=== PATIENT | female | born 1970 | race Asian ===

== ENCOUNTER 2022-12-08 10:16 | Day surgery (SDC) | payer OTHER, SELFPAY ==
--- NOTE | 2022-12-08 | PATH_ITS ---
[facility] Accession Number: [id number] No. of containers..01 Tissue . 01 Material submitted: . rectum - RECTAL POLYP X2 . 01 Diagnosis: Rectal Polyps: Hyperplastic polyp x2. MRV 12/15/2022 1906 Local . 01 Electronically signed: . Wilbert Christian MD, PhD, Pathologist NPI- [id number] . 01 Gross description: . RECTAL POLYP X2: Received in formalin are 2 fragment(s) of milian, soft tissue measuring 0.4 x 0.4 x 0.2 cm to 0.7 x 0.4 x 0.4 cm submitted entirely in 1 cassette(s) /[facility] 12/11/2022 2014 Local . 01 Pathologist provided ICD-10: K62.1 . 01 CPT . 937411 Specimen Comment: A courtesy copy of this report has been sent to [phone] Performed at: 01 [facility] [address] [place] [address], [place], [place] [id number] MD Michael Harrington MD Phone: [phone]
[2022-12-08 10:45] VITALS: BMI 24.9
[2022-12-08 10:59] VITALS: BP 100/66; PULSE 60; RESP 16; TEMP 36.8; O2SAT 98
[2022-12-08] MEDS: LACTATED RINGERS 1,000 ML 200 ML IV (11:03)
--- NOTE | 2022-12-08 12:01 | P.HP_ITS ---
History of Present Illness History of Present Illness Date Patient Seen: 12/08/22 Time Patient Seen: 12:01 Chief complaint: Screening Colonoscopy Narrative: 52-year-old woman here for screening colonoscopy. No prior colonoscopy. No first-degree family members with a history of colon cancer. No abdominal complaints including abdominal pain unintentional weight loss nausea vomiting blood per rectum. [facility] Medical History Arthritis Social History household members: spouse Smoking Status: Current every day smoker alcohol intake: current Meds Home Medications and Allergies Home Medications Medication Instructions Recorded Confirmed Type sodium,potassium,mag sulfates 17.5 See Rx Instructions PO .COMPLEX 10/22/22 12/08/22 Rx gram-3.13 gram-1.6 gram oral soln #354 mL (Suprep Bowel Prep Kit) Allergies Allergy/AdvReac Type Severity Reaction Status Date / Time No Known Drug Allergies Allergy Verified 12/08/22 10:44 Exam Vital Signs (past 8 hours): - 12/08/22 10:45 12/08/22 10:59 Temperature 98.3 F Pulse Rate 60 Respiratory Rate 16 Blood Pressure 100/66 Pulse Oximetry 98 Oxygen Delivery Method Room Air Room Air Oxygen Delivery Method Room Air Narrative Exam Narrative: General adult woman alert oriented no acute distress Chest nonlabored respiration Extremities warm well perfused Assessment & Plan Assessment & Plan narrative: The patient requires colorectal screening and colonoscopy is recommended. Technical details were discussed. Risks, benefits, alternatives explained. Risks including but not limited to myocardial infarction, aspiration, bleeding, pain, missed lesion, incomplete examination, need for further radiographic studies, colonic perforation, and need for major abdominal surgery were discussed. All questions were answered to their satisfaction, and they are in agreement with this plan.
[2022-12-08 12:35] VITALS: BP 82/54; PULSE 69; RESP 16; TEMP 36.7; O2SAT 96
--- NOTE | 2022-12-08 12:39 | PM.OP.COLON ---
Operative Date/Time/Diagnoses Date of procedure: 12/08/22 Time of procedure: 12:39 Pre-op diagnosis: Colorectal screening Post-op diagnosis: other (Colorectal polyps x2) Procedure & Clinicians Study performed: Colonoscopy and polypectomy Same procedure as scheduled: Yes Indications: Colorectal screening Surgeon: Evaristo Molina Procedure Notes Procedure in detail: The history and physical was performed/updated and the patient is ASA class is 2. The procedure was discussed in detail with the patient. Potential risks complications including infection, bleeding, missed diagnosis, perforation, need for surgery, and were explained. Their questions were answered and informed consent was obtained. Patient was brought to the procedure room and placed standard monitoring equipment. The patient's vital signs were monitored continuously throughout the entire procedure. Prior to starting time-out was performed. The patient was placed in the left lateral recumbent position. Procedural sedation was administered by anesthesia. Examination began with a thorough inspection of the perianal area there was no evidence of fissures, fistulae, external hemorrhoids or cutaneous malignancy. The colonoscopy scope was then placed into the anal canal and was advanced to the cecum, which was identified by the ileocecal valve, the appendiceal orifice and the confluence of the taenia. The scope was then slowly withdrawn examining colon thoroughly in all directions, irrigating it of any residual stool. Rectum-2, 3 mm polyps within the rectum removed with cold snare. The patient tolerated the procedure well. They will be discharged once criteria are met. The prep was of good/excellent quality. The withdrawl time was 6 minutes. Specimen(s): other (Rectal polyps x2) Complications: none Impression: Colonic polyps x2 Post-procedure Plan for aftercare: Follow-up is dependent on pathology findings likely 5 years. Disposition: same day surgery
[2022-12-08 12:40] VITALS: BP 83/55; PULSE 63; RESP 15; O2SAT 96
[2022-12-08 12:46] VITALS: BP 89/64; PULSE 66; RESP 16; O2SAT 97
== END 2022-12-08 13:01 | disposition home or self-care (01) ==
PROVIDERS: PCP Family Medicine; Referring Provider Surgery; Visit Provider Surgery
PROC: 0DJD8ZZ Inspection of Lower Intestinal Tract, Via Natural or Artificial Opening Endoscopic (ICD-10-PCS; CPT 45378; principal; 2022-12-08 11:30)
DX: Z12.11 Encounter for screening for malignant neoplasm of colon (principal); K62.1 Rectal polyp
CPT/HCPCS: 45385

== ENCOUNTER → 2024-02-11 11:56 | Outpatient (CLI) | payer OTHER, SELFPAY ==
--- NOTE | 2024-02-11 | DI.CT.S_ITS ---
PROCEDURE: CT ABDOMEN WWO PELVIS W INDICATIONS: ABNORMAL FINDINGS ON PET TECHNIQUE: After the administration of oral contrast, 5 mm thick sections acquired from the diaphragms to the iliac crests. After the administration of intravenous contrast, 5 mm thick sections acquired from the diaphragms to the symphysis. 5 mm thick coronal and sagittal reformats were acquired. For radiation dose reduction, the following was used: automated exposure control, adjustment of mA and/or kV according to patient size. COMPARISON: Outside Facility, CT, CT LUNG LOW DOSE SCREENING, 10/28/2023, 10:14. [facility], [place], [place] PET CT FUSION SKULL 2 THIGH, 01/26/2024, 12:04. FINDINGS: Image quality: Diagnostic Lower chest: Pleural thickening and moderate right-sided effusion partially seen. No hiatal hernia Liver: Subcentimeter liver lesions are too small to characterize, without definite hypermetabolic activity on PET. The pleural thickening is hypermetabolic [facility] home down the liver at the costophrenic angle, which is quite deep in this patient. Gallbladder and biliary system: Unremarkable, nondilated Pancreas: No ductal dilation Spleen: Nonenlarged Adrenals: Lipid rich left adrenal adenoma. This measures about 1.1 cm. Kidneys: No solid mass or hydronephrosis. No obstructing calcified stone Vessels and lymph nodes: The main portal vein is patent. No abdominal aortic aneurysm. Indeterminate prominent pelvic and retroperitoneal lymph nodes are present, for example left common iliac measuring 0.8 cm. Bowel and peritoneum: No evidence of small bowel obstruction. No pathologic ascites Body wall: Very subtle right paravertebral lesion measures 1.3 cm. This is previously hypermetabolic Pelvis: Suspect fibroid uterus and possible low lying IUD. Bladder is unremarkable Bones: Osseous disease is better assessed on PET-CT. IMPRESSION: Hypermetabolic appearance at the right costophrenic angle is likely related to pleural pathology. No definite hypermetabolic intrinsic liver lesion. Subcentimeter lesions are seen within the dome of the liver, too small to characterize, attention on follow-up is suggested. Incidental lipid rich left adrenal adenoma. Prominent abdominal pelvic lymph nodes, attention on follow-up in the setting of malignancy Right paravertebral and osseous lesions were described on prior PET-CT. The areas of uptake adjacent to the femurs in particular are noted, without discrete soft tissue lesion on CT. These remain indeterminate and may be inflammatory versus early neoplastic disease. Suspect fibroid uterus and low lying IUD. Dictated by: Reece Soni M.D. on 02/11/2024 at 14:13 Approved by: Reece Soni M.D. on 02/11/2024 at 14:25
[2024-02-11 12:21] LABS: Estimated Glomerular Filt Rate > 60 mL/min (>60)
== END ==
PROVIDERS: Radiology Diagnostic Radiology; PCP Nurse Practitioner Family; Referring Provider Nurse Practitioner Family; Visit Provider Nurse Practitioner Family
DX: J90 Pleural effusion, not elsewhere classified (principal); D35.02 Benign neoplasm of left adrenal gland; J98.4 Other disorders of lung; R59.0 Localized enlarged lymph nodes; M89.9 Disorder of bone, unspecified; R52 Pain, unspecified; Z97.5 Presence of (intrauterine) contraceptive device
CPT/HCPCS: 36415; 74178; 82565; Q9967

== ENCOUNTER → 2024-06-07 10:38 | Outpatient (CLI) | payer OTHER, SELFPAY ==
--- NOTE | 2024-06-07 10:39 | DI.CT.S_ITS ---
PROCEDURE: CT CHEST WO CON INDICATIONS: RHEUMATOID ARTHRITIS TECHNIQUE: Noncontrast 5 mm thick sections acquired from the pulmonary apices to the posterior costophrenic angles. 1 mm lung window, 5 mm thick coronal and sagittal and 7 mm axial MIP reformats were then acquired. For radiation dose reduction, the following was used: automated exposure control, adjustment of mA and/or kV according to patient size. COMPARISON: None. FINDINGS: Image quality: Diagnostic. Lower Neck: No enlarged lymph nodes. Thyroid: No thyroid nodules which require sonographic follow up, per consensus guidelines. Axillae: No enlarged lymph nodes. Chest Wall: Unremarkable. Bones: Unremarkable. Lungs and Pleura: No pneumothorax or pleural effusions. No consolidation or suspicious nodules. Heart: Heart size is normal. No pericardial effusion. Thoracic Vessels: The aorta and pulmonary arteries demonstrate normal size. Mediastinum and Hillary: No enlarged lymph nodes. Esophagus: No wall thickening. No hiatal hernia. Upper Abdomen: Visualized upper abdomen solid organs and bowel loops appear normal. IMPRESSION: No evidence of interstitial lung disease or drug reaction. Dictated by: Jose Catalan M.D. on 06/07/2024 at 13:03 Approved by: Jose Catalan M.D. on 06/07/2024 at 13:07
== END ==
PROVIDERS: PCP Nurse Practitioner Family; Referring Provider Internal Medicine; Visit Provider Internal Medicine
DX: M05.79 Rheumatoid arthritis with rheumatoid factor of multiple sites without organ or systems involvement (principal)
CPT/HCPCS: 71250